=== PATIENT | female | born 1975 | race Caucasian/White ===

== ENCOUNTER 2022-03-26 15:52 | Emergency (ER) | payer BC ==
[~2022-03-26] VITALS: Ht 170.2 cm; Wt 105.7 kg
--- NOTE | 2022-03-26 15:52 | NUR ---
Patient triaged and placed in waiting room. VSS and patient appears in no acute distress at this time. Accompanied by SELF, awaiting available bed, and MD notified of need for MSE.
[2022-03-26 15:55] VITALS: BP_SYST 137
--- NOTE | 2022-03-26 15:59 | NUR ---
DR EVANS OUT TO TRIAGE ROOM TO EVALUATE PT.
--- NOTE | 2022-03-26 16:00 | NUR ---
PT STATES SHE HAS BEEN SICK FOR LAST ONE MONTH WITH COUGH, SORE THROAT. PT STATES COVID TEST YESTERDAY WAS NEGATIVE.
[2022-03-26] MEDS ORDERED: BENZ100C92 PO (16:23)
[2022-03-26] MEDS ORDERED: MED4 PO (16:23)
--- NOTE | 2022-03-26 16:28 | NUR ---
Patient given written and verbal discharge instructions and verbalizes understanding. ER MD discussed with patient the results and treatment provided. Patient in stable condition. ID arm band removed. Rx of METHYLPREDNISOLONE, BENZONATATE given. Patient educated on pain management and to follow up with PMD. Pain Scale 0/10. Opportunity for questions provided and answered. Medication side effect fact sheet provided.
== END 2022-03-26 16:28 | disposition home or self-care (01) ==
LOC: SED 15:52
DX: J45.909 Unspecified asthma, uncomplicated (principal)
CPT/HCPCS: 99283